=== PATIENT | female | born 1960 | race Hispanic/Latino ===

== ENCOUNTER 2021-11-04 17:06 | Emergency (ER) | payer OTHER ==
[~2021-11-04] VITALS: Ht 149.9 cm; Wt 59.9 kg
== END 2021-11-04 20:04 | disposition home or self-care (01) ==
LOC: ER 17:13
DX: M25.562 Pain in left knee (principal); S80.212A Abrasion, left knee, initial encounter; M25.462 Effusion, left knee; Z48.01 Encounter for change or removal of surgical wound dressing
CPT/HCPCS: 93971; 99283